=== PATIENT | female | born 1995 | race Hispanic/Latino ===

== ENCOUNTER 2019-11-13 18:57 | Emergency (ER) | payer SELFPAY ==
[~2019-11-13] VITALS: Ht 157.5 cm; Wt 115.7 kg
--- NOTE | 2019-11-13 19:00 | Emergency Department Note ---
History of Present Illnes History of Present Illness History of Present Illness This is a 24 year old female c/o right knee swelling. she twisted her right knee 5 days ago, trying to walk on it still and the pain got worse, hurting lateral knee, swelling, laterally. 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 Any updates have been documented here. 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) Smoking Cessation: Never Smoker Alcohol Use: Social Any Illegal Drug Use: No TB Exposure/Symptoms: No Physically hurt or threatened: No Other Any Pre-Existing Lines (PICC,: No Is patient up to date on immun: No Review of Systems Review of Systems Constitutional: Reports no symptoms EENTM: Reports no symptoms Cardiovascular: Reports no symptoms Respiratory: Reports no symptoms Gastrointestinal: Reports no symptoms Genitourinary: Reports no symptoms Musculoskeletal: Reports as per HPI, Reports joint pain, Reports joint swelling, Reports muscle pain Integumentary: Reports no symptoms Neurological: Reports no symptoms Psychological: Reports no symptoms Endocrine: Reports no symptoms Hematological/Lymphatic: Reports no symptoms Physical Exam Related Data Allergies: Coded Allergies: No Known Allergies (Unverified , 11/13/19) Physical Exam CONSTITUTIONAL Constitutional: Present well-developed, Present well-nourished HENT HENT: Present normocephalic, Present atraumatic, Present oropharynx clear/moist, Present nose normal HENT L/R: Present left ext ear normal, Present right ext ear normal EYES Eyes: Reports PERRL, Reports conjunctivae normal NECK Neck: Present ROM normal PULMONARY Pulmonary: Present effort normal, Present breath sounds normal CARDIOVASCULAR Cardiovascular: Present regular rhythm, Present heart sounds normal, Present capillary refill normal, Present normal rate GASTROINTESTINAL Abdominal: Present soft, Present nontender, Present bowel sounds normal GENITOURINARY Genitourinary: Present exam deferred SKIN Skin: Present warm, Present dry MUSCULOSKELETAL Musculoskeletal: Present tenderness, Present swelling (right lateral knee) NEUROLOGICAL Neurological: Present alert, Present oriented x 3, Present no gross motor or sensory deficits PSYCHOLOGICAL Psychological: Present mood/affect normal, Present judgement normal Assessment & Plan Medical Decision Making MDM sprain knee, doubt fracture bone. Patient declines xray, need MRI out patient Reassessment Reassessment crutches provided Assessment & Plan Final Impression: (1) Acute pain due to trauma (2) Sprain of right knee/leg Depart Disposition: HOME, SELF-CARE Physician Attestation Provider Attestation limited weight bearing, knee brace, crutches and f/u orthopedic Dr Sheri Cantu. AMARA LU MD Nov 13, 2019 19:00
== END 2019-11-13 20:05 | disposition home or self-care (01) ==
LOC: FSED 19:25
DX: M25.561 Pain in right knee (principal); S83.91XA Sprain of unspecified site of right knee, initial encounter; X50.1XXA Overexertion from prolonged static or awkward postures, initial encounter; Y93.01 Activity, walking, marching and hiking; E03.9 Hypothyroidism, unspecified
CPT/HCPCS: 99282